=== PATIENT | female | born 1980 | race African-American/Black ===

== ENCOUNTER 2025-06-18 19:18 | Emergency (ER) | payer MEDICAID ==
[~2025-06-18] VITALS: Ht 170.2 cm; Wt 195.6 kg
[2025-06-18 19:26] VITALS: BP 136/92; PULSE 81; RESP 18; TEMP 98.4; O2SAT 100
[2025-06-18] MEDS: ACETAMINOPHEN 500 MG TABLET PO ONE (21:46)
[2025-06-18] MEDS ORDERED: ALBU18HF12 IH (22:20)
== END 2025-06-18 22:36 | disposition home or self-care (01) ==
LOC: EMS 19:18
DX: T49.8X5A Adverse effect of other topical agents, initial encounter (principal); M54.50 Low back pain, unspecified; Y92.89 Other specified places as the place of occurrence of the external cause
CPT/HCPCS: 99283